=== PATIENT | male | born 1960 | race Hispanic/Latino ===

== ENCOUNTER 2017-06-06 06:31 | Day surgery (SDC) | payer MEDICARE ==
[2017-06-06 08:24] LABS: Hematocrit 39.8 % (35.5-45.6); Hemoglobin 13.5 gm/dl (11.8-15.2); Mean Corpuscular HGB Conc 34 % (32-34); Mean Corpuscular Hemoglobin 34 pg (28-32); Mean Corpuscular Volume 99 fl (84-94); Platelet Count 216 K/mm3 (140-440); Red Blood Count 4.03 M/mm3 (3.65-5.03); Red Cell Distribution Width 13.9 % (13.2-15.2)
[2017-06-06 08:36] LABS: INR 0.93 (0.87-1.13)
[2017-06-06 08:37] LABS: Partial Thromboplastin Time 29.7 Sec. (24.2-36.6)
[2017-06-06] MEDS ORDERED: ATIVAN ONE (08:38)
[2017-06-06] MEDS ORDERED: ATIVAN IV ONE (09:00)
[2017-06-06] MEDS ORDERED: VERSED IV ONE (09:30)
[2017-06-06 09:45] LABS: Anion Gap 20 mmol/L; BUN/Creatinine Ratio 18.57; Blood Urea Nitrogen 13 mg/dL (9-20); Calcium 9.1 mg/dL (8.4-10.2); Carbon Dioxide 22 mmol/L (22-30); Chloride 90.8 mmol/L (98-107); Glucose 99 mg/dL (75-100); Potassium 4.7 mmol/L (3.6-5.0); Sodium 128 mmol/L (137-145)
[2017-06-06] MEDS ORDERED: BENADRYL ONE (09:53)
[2017-06-06] MEDS ORDERED: SUBLIMAZE IV ONE (10:00)
[2017-06-06] MEDS ORDERED: BENADRYL IV ONE (10:30)
--- NOTE | 2017-06-06 10:32 | Operative Report ---
Operative Report Operative Report: Procedure: CT-guided biopsy/aspiration of an exophytic left renal mass. Date of Procedure: 06/06/2017 History/Indication: 57-year-old male with multiple comorbidities, with an incidentally discovered low-density exophytic left renal mass on CT. Physician: Gianfranco Gutiérrez MD Technique/Procedural Details: Informed consent was obtained. Monitored sedation was administered with the assistance of the nursing staff. The patient was placed in the prone position on the CT scanner. A marking grid was placed, and a machine tool electrician image was obtained. After the appropriate site was marked, the patient was prepped and draped in the usual sterile fashion. A timeout was performed. Local anesthetic, both superficial and deep, was administered. A 17-gauge trocar needle was advanced to the edge of a left-sided exophytic renal lesion under sequential CT guidance. Multiple 18-gauge core samples were acquired with a [employer] core biopsy device. Aspiration of lesion contents was then performed through the trocar needle. The needle was removed, and final imaging was obtained. The patient was then transported from the CT scanner in good condition. Discussion: CT demonstrates a 1.5-2 cm low-density exophytic left renal lesion. Only scant tissue was obtained despite multiple 18-gauge core attempts. Approximately 1-2 mL of thin yellow fluid was aspirated. This is likely a largely cystic lesion containing very little solid tissue. Pathology was present and deemed whatever solid tissue was acquired was sufficient for analysis. Post biopsy imaging demonstrated small foci of air related to the procedure around the lesion. There is no evidence of postprocedural hemorrhage/hematoma. Specimen: Renal lesion contents. EBL: <5 cc
--- NOTE | 2017-06-06 10:35 | Cat Scan Report ---
Please see the dictated operative note in [facility] for full procedural details.
[2017-06-06] MEDS ORDERED: NORCO 10/325 PO PRN (11:00)
[2017-06-06 12:36] VITALS: BP 136/84
== END 2017-06-06 12:42 | disposition left against medical advice (07) ==
LOC: EEVIPCON 06:31 → OPU 06:31 → EDSTATUS 08:30 → OPU 12:42
PROVIDERS: ATTEND Radiology Diagnostic Radiology
DX: N28.89 Other specified disorders of kidney and ureter (principal); I10 Essential (primary) hypertension; F31.9 Bipolar disorder, unspecified; F17.210 Nicotine dependence, cigarettes, uncomplicated; Z98.890 Other specified postprocedural states
CPT/HCPCS: 36415; 50200; 77012; 80048; 85027; 85610; 85730; 88173; 88305; 88333; J1200; J2060; J2250; J3010; 88334

== ENCOUNTER 2018-06-13 06:03 | Day surgery (SDC) | payer MEDICARE ==
[2018-06-13] MEDS ORDERED: NACL 0.9% 1000 ML 1,000 ML ONE (07:30)
[2018-06-13] MEDS ORDERED: WATER FOR IRRIG STERILE IR ONE (07:41)
[2018-06-13] MEDS ORDERED: XYLOCAINE MPF 2% ONE (08:00)
[2018-06-13] MEDS ORDERED: NACL 0.9% 1000 ML 1,000 ML IV SCH (08:00)
[2018-06-13] MEDS ORDERED: DIPRIVAN 10 MG/ML IV ONE ×2 (08:28)
--- NOTE | 2018-06-13 09:00 | Anesthesia Consultation ---
Anesthesia Consult and Med Hx Date of service: 06/13/18 - Airway Anesthetic Teeth Evaluation: Good ROM Head & Neck: Adequate Mental/Hyoid Distance: Adequate Mallampati Class: Class II Intubation Access Assessment: Probably Good - Pre-Operative Health Status ASA Pre-Surgery Classification: ASA3 Proposed Anesthetic Plan: MAC - Pulmonary Hx Smoking: Yes (10 CIGARETTES DAILY 1-2 PPD 36 YRS) COPD: Yes Hx Sleep Apnea: No - Cardiovascular System Hx Hypertension: Yes - Central Nervous System Hx Psychiatric Problems: Yes - Gastrointestinal Hx Gastroesophageal Reflux Disease: Yes - Endocrine Hx Renal Disease: Yes (LEFT KIDNEY BENIGN MASS X 2) Hx Cirrhosis: Yes - Other Systems Hx Cancer: No
--- NOTE | 2018-06-13 09:01 | Anesthesia Day of Surgery ---
Anesthesia Day of Surgery - Day of Surgery Patient Examined: Yes Patient H&P Reviewed: Yes Patient is NPO: Yes
--- NOTE | 2018-06-13 09:03 | History and Physical Report ---
HISTORY OF PRESENT ILLNESS: A 58-year-old white male with a history of neurogenic bladder who has a long history of also drinking alcohol as well as smoking. His last EGD was about a year ago. He had shown some presence of portal gastropathy at that time. He also subsequently had a CT scan, which showed presence of 2 renal cysts with no enhancing renal mass. The liver did show some evidence of mildly irregular contour suggestive maybe of early evidence of cirrhosis and possible fatty liver. Bile ducts were not dilated and the pancreas was unremarkable. The spleen was not enlarged. He also has lately been complaining of dysphagia and abdominal pain and associated diarrhea and will be tried on ____. He has been advised to have an EGD done with possible dilation. His last dilation was a year ago. Last CT scan done by me had also showed necrosis of the left femoral head for which he had to follow up with an orthopedic surgeon. SOCIAL HISTORY: Admits to smoking and alcohol use. No cardiac issues. He has had his flu shots. MEDICATIONS: Include Prilosec, Trileptal, Coreg, BuSpar, valsartan, Diovan, and oxycodone. PHYSICAL EXAMINATION: VITAL SIGNS: His blood pressure is 155/103, pulse is 75. Height is 5 feet 11 inches, weight is 197 pounds. Afebrile. HEENT: Showed no JVD. LUNGS: Clear to auscultation. CARDIOVASCULAR: Normal. ABDOMEN: Soft. Bowel sounds present. NEUROLOGIC: The patient was otherwise alert and oriented. ASSESSMENT AND PLAN: Abdominal pain, dysphagia, diarrhea, fatty liver, left renal mass, possible necrosis of the left humeral head for which he has had a hip surgery. Plan is to do an EGD with possible dilation at [facility] on 06/13/2018 and continue with his present treatment of for his diarrhea. JOB# [id number] LACHELLE/ARPAN
--- NOTE | 2018-06-13 09:06 | Procedure Note ---
Date of procedure: 06/13/18 Pre-op diagnosis: Dysphagia Post-op diagnosis: other (Esophageal Ulcer/Erosive Esophagitis/ Mild, Benign esophageal Stenosis (s/p esophageal dilation)/ Duodenal Ulcer/ Gastric Erosion and FGastritis) Anesthesia: MAC Estimated blood loss: minimal Pathology: list Specimen disposition: to lab Condition: stable Disposition: same day (Avoid aspirin and aspirin related products and anticoagulants for 4 days. Follow up in 1 to 2 weeks ([phone]).)
--- NOTE | 2018-06-13 09:14 | Operative Report ---
INDICATIONS: A 58-year-old white male who has a history of alcohol use over a prolonged period of time lately has been having problems with dysphagia. He had EGD and dilation done a year ago. Repeat EGD was done to make sure there was not any significant upper GI pathology present. He also complains of severe abdominal pain. DESCRIPTION OF PROCEDURE: EGD was done after getting informed consent with MAC anesthesia. The instrument was passed through the hypopharynx into the esophagus, which did not show any esophageal varices, but did show an esophageal ulcer in the distal esophagus. Biopsy was done from the distal esophagus as well as from the mid esophagus. Biopsy was done from the distal esophagus from over the area of the esophageal ulcer in the mid esophagus for eosinophilic esophagitis. The stomach showed gastritis and some portal gastropathy. There was no evidence of any esophageal varices present. Biopsy was done from the gastric antrum and angular incisure on the gastric body to rule out for H. pylori and atrophic gastritis. The pylorus was patent. The duodenum and the bulb showed a duodenal ulcer, clean base. Second portion appeared normal. At the end of the procedure, the patient was dilated with a 46-and a 48-[place] Alvarado dilator because of his symptoms of dysphagia and presence of mild benign esophageal stenosis. There was minimal bleeding from the biopsy sites. No complications associated with the procedure. IMPRESSION: EGD with biopsy and status post esophageal dilation for mild benign esophageal stenosis and esophageal ulcer in the distal esophagus with erosive esophagitis, rule out eosinophilic esophagitis, gastritis, and a clean based duodenal ulcer. The patient had patent pylorus. Again, there was minimal bleeding from the biopsy sites and no complications associated with the procedure. The patient will be treated with PPI. Asked to avoid aspirin and aspirin-related products for the next few days, asked to follow up in the office in 1-2 weeks' time and will be strongly advised to refrain from smoking and tobacco use. JOB# [id number] LACHELLE/ARPAN
--- NOTE | 2018-06-13 10:09 | Post Anesthesia Evaluation ---
- Post Anesthesia Evaluation Patient Participated: Yes Airway Patent: Yes Stable Respiratory Function: Yes Nausea/Vomiting: No Temp > 96.8F: Yes Pain Manageable: Yes Adequeate Hydration: Yes Anesthesia Complications: No
[2018-06-13 10:39] VITALS: BP 160/88
--- NOTE | 2018-06-13 10:49 | Operative Report ---
EGD WITH BIOPSY AND ESOPHAGEAL DILATION Procedure done 06/13/2018 at [facility]. DESCRIPTION OF PROCEDURE: The procedure was done with MAC anesthesia head of the GI lab, was in the room during the procedure. Procedure was done after getting informed consent with MAC anesthesia. Instrument was passed through hypopharynx into the esophagus, which showed some mild benign esophageal stenosis and distal esophageal ulcer with moderate distal erosive esophagitis. The stomach showed gastric erosion and gastritis. The pylorus was patent. The duodenum and the bulb showed clean based duodenal ulcer. Second portion appeared normal. Biopsy was done from the gastric body, the gastric antrum and the angular incisure for H. pylori. Additional biopsy was done from the distal esophagus where the esophageal ulcer was assessed for the severity of the erosive esophagitis and from the midesophagus to rule out for eosinophilic esophagitis. No esophageal varices were noted at the end of the procedure. The esophagus was dilated with a 46 and a 48-[place] Alvarado dilator. There were no complications associated with the procedure and there was minimal bleeding associated with the procedure. ASSESSMENT: Dysphagia, mild benign esophageal stenosis, status post esophageal dilation with 46 and 48-[place] Alvarado dilator, distal esophageal ulcer. Moderate erosive esophagitis, rule out eosinophilic esophagitis. No esophageal varices noted. Clean-based duodenal ulcer noted. Gastric erosion, gastritis, patent pylorus. Plan is to treat the patient with 40 mg p.o. once daily. The patient will be strongly advised to refrain from smoking and alcohol use to avoid aspirin and aspirin-related products for the next few days and follow up in the office in 1-2 weeks' time and again and was in the room and the whole time during the procedure. JOB# [id number] LACHELLE/ARPAN
== END 2018-06-13 06:04 | disposition home or self-care (01) ==
LOC: GIO 06:03
DX: K22.10 Ulcer of esophagus without bleeding (principal); K22.2 Esophageal obstruction; K26.9 Duodenal ulcer, unspecified as acute or chronic, without hemorrhage or perforation; K25.9 Gastric ulcer, unspecified as acute or chronic, without hemorrhage or perforation; K29.50 Unspecified chronic gastritis without bleeding; K21.0 Gastro-esophageal reflux disease with esophagitis; B37.9 Candidiasis, unspecified; I10 Essential (primary) hypertension; J44.9 Chronic obstructive pulmonary disease, unspecified; M19.90 Unspecified osteoarthritis, unspecified site; F17.210 Nicotine dependence, cigarettes, uncomplicated; Z96.642 Presence of left artificial hip joint; Z98.890 Other specified postprocedural states
CPT/HCPCS: 43239; 43499; 88305; 88342; J2704; J7030; 88312

== ENCOUNTER 2018-06-27 06:11 | Day surgery (SDC) | payer MEDICARE ==
[2018-06-27] MEDS ORDERED: WATER FOR IRRIG STERILE IR ONE (07:01)
[2018-06-27] MEDS ORDERED: WATER FOR IRRIG STERILE ONE (07:02)
[2018-06-27] MEDS ORDERED: DIPRIVAN 10 MG/ML IV ONE ×3 (07:45)
[2018-06-27] MEDS ORDERED: NACL 0.9% 1000 ML 1,000 ML IV SCH (08:00)
[2018-06-27] MEDS ORDERED: NACL 0.9% 100 ML ONE (08:16)
[2018-06-27] MEDS ORDERED: XYLOCAINE TOPICAL 2% 5ML ONE (09:01)
[2018-06-27] MEDS ORDERED: XYLOCAINE TOPICAL 2% 30ML TP ONE (09:05)
--- NOTE | 2018-06-27 09:16 | Procedure Note ---
Date of procedure: 06/27/18 Pre-op diagnosis: Hematochezia Post-op diagnosis: other (Hematochezia secondary Internal Hemorrhoids (s/p Banding x 4)/ Multiple,Small Recto-Sigmoid Polyps (possibly Hyperplastic)) Procedure: Colonoscopy with Biopsy andFlex Sigmoidoscopy with Banding x 4 Anesthesia: MAC Surgeon: KRISTY HENRIQUEZ Estimated blood loss: minimal Pathology: list Specimen disposition: to lab Condition: stable Disposition: same day (Avoid aspirin and aspirin related products for 4 days. follow up in 1 to 2 weeks ([phone]).)
--- NOTE | 2018-06-27 09:38 | Operative Report ---
PROCEDURE: Colonoscopy. INDICATIONS: This is a 58-year-old white male with underlying history of alcohol use, history of mild alcoholic liver disease, history of Aracelis esophagitis, duodenal ulcer and necrosis of the left femoral head for which he has had hip replacement done, recently had been having some lower GI bleeding. Colonoscopy was done to assess for the problem. DESCRIPTION OF PROCEDURE: Procedure was done after getting informed consent with MAC anesthesia. Initial rectal exam was unremarkable. Instrument was passed through the rectum onto the cecum, which was identified with ileocecal valve and the appendiceal orifice. Visualization was fair. The mucosa was washed with copious amounts of water. No significant pathology was noted in the cecum, ascending colon, transverse colon, and descending colon. In the rectosigmoid area, there were several small polyps noted, possibly hyperplastic in type. It was removed by cold biopsy and the rectum showed moderate internal hemorrhoids on the retroverted view, which may have been the cause of the patient's bleeding. There was minimal bleeding from the biopsy sites. No complications associated with the procedure. ASSESSMENT: 1. Lower gastrointestinal bleeding secondary to moderate internal hemorrhoids. 2. Several rectosigmoid polyps, possibly hyperplastic in type and there was minimal bleeding from the biopsy sites. No complications associated with the procedure. Plan is to do a flex sig with banding for treatment of the moderate internal hemorrhoids, which is causing the hematochezia. There were no complications associated with the procedure. The patient will be asked to avoid aspirin and aspirin-related products for the next few days and follow up in the office in 1-2 weeks' time. Nurse, Evelyn Fine was in the room throughout the entirety of this procedure. JOB# [id number] LACHELLE/ARPAN
[2018-06-27 09:41] VITALS: BP 154/74
--- NOTE | 2018-06-27 10:00 | History and Physical Report ---
HISTORY OF PRESENT ILLNESS: This is a 58-year-old white male with a history of neurogenic bladder, who has a long history of drinking as well as smoking recently, had an EGD, which showed some dysphagia. EGD also showed presence of Aracelis esophagitis, mild benign esophageal stenosis requiring dilation as well as the presence of a duodenal ulcer. Biopsy was negative for H. pylori, but was positive for Aracelis esophagitis. He has lately been complaining of lower GI bleeding and has been advised to have a colonoscopy done for further assessment, may also require a flex sig with banding if needed. SOCIAL HISTORY: Admits to smoking as well as drinking. He has had his flu shots. No cardiac issues. ALLERGIES: No known allergies. PAST SURGICAL HISTORY: He also has recently had a hip replacement involving his left hip. MEDICATIONS: He is on multiple medications including Prilosec, Coreg, BuSpar, valsartan, Diovan, oxycodone, Diflucan, omeprazole PHYSICAL EXAMINATION: VITAL SIGNS: He is afebrile. Blood pressure 177/104, pulse is 62, height is 5 feet 11 inches, weight is 210 pounds. HEENT: Shows no JVD. LUNGS: Clear to auscultation with some reduced breath sounds. CARDIOVASCULAR: Normal. ABDOMEN: Soft. Bowel sounds present. He still has some epigastric tenderness to palpation. EXTREMITIES: No pedal edema and has had a hip replacement for necrosis of the left femoral head. NEUROLOGIC: He is alert and oriented. ASSESSMENT: Lower gastrointestinal bleeding, Aracelis esophagitis, history of duodenal ulcer, fatty liver, history of necrosis of the left humeral head requiring left hip replacement. PLAN: Do a colonoscopy at [facility] on 06/27/2018. He has also been advised to avoid smoking and needs to have a followup following the colonoscopy. JOB# [id number] LACHELLE/ARPAN VIGIL
--- NOTE | 2018-06-27 10:10 | Operative Report ---
PROCEDURE: Flexible sigmoidoscopy with banding. INDICATIONS: This is a 58-year-old male who had been having some lower GI bleeding. Colonoscopy showed moderate internal hemorrhoid, which may have been the cause of the bleeding. There were no external hemorrhoids noted. Flex sig with banding was done for treatment of this condition. DESCRIPTION OF PROCEDURE: Procedure was done after getting informed consent with MAC anesthesia. The EGD scope with the banding apparatus was mounted. It was then introduced through the rectum and retroflexed. Four of the largest hemorrhoids were then suctioned into the suction channel and a band was applied to each of them except the largest one, which had 2 bands applied to it. There was no bleeding associated with the procedure. No complications associated with the procedure. After the banding, the banded areas had applications of lidocaine gel applied to it. ASSESSMENT: Hematochezia secondary to moderate internal hemorrhoids, status post banding of 4 internal hemorrhoids with application of 5 bands. No complications associated with the procedure. No active bleeding associated with the procedure. The patient will be given a prescription for lidocaine gel and asked to use Sitz baths and follow up in the office in 1-2 weeks' time and nurse, Evelyn Fine was in the room throughout the entirety of this procedure. JOB# [id number] LACHELLE/ARPAN
== END 2018-06-27 08:40 | disposition home or self-care (01) ==
LOC: GIO 06:11
DX: K62.1 Rectal polyp (principal); K63.5 Polyp of colon; K64.8 Other hemorrhoids; B37.81 Candidal esophagitis; F17.210 Nicotine dependence, cigarettes, uncomplicated; I10 Essential (primary) hypertension; J44.9 Chronic obstructive pulmonary disease, unspecified; F31.9 Bipolar disorder, unspecified; K21.9 Gastro-esophageal reflux disease without esophagitis; M19.90 Unspecified osteoarthritis, unspecified site; Z79.899 Other long term (current) drug therapy; Z96.642 Presence of left artificial hip joint; Z72.89 Other problems related to lifestyle; Z98.890 Other specified postprocedural states
CPT/HCPCS: 45380; 46221; 88305; J2704; J7030

== ENCOUNTER 2019-02-04 07:23 | Day surgery (SDC) | payer MEDICARE ==
[2019-02-04] MEDS ORDERED: DIPRIVAN 10 MG/ML IV ONE ×3 (07:37→07:38)
[2019-02-04] MEDS ORDERED: XYLOCAINE 2% INFILTRATI ONE (07:38)
[2019-02-04] MEDS ORDERED: PROAIR IH ONE (07:51)
--- NOTE | 2019-02-04 07:57 | Anesthesia Day of Surgery ---
Anesthesia Day of Surgery - Day of Surgery Patient Examined: Yes Patient H&P Reviewed: Yes Patient is NPO: Yes Beta Blockers: Yes Cardiac Clearance: No (n/a) Pulmonary Clearance: No (n/a)
--- NOTE | 2019-02-04 07:57 | Anesthesia Consultation ---
Anesthesia Consult and Med Hx Date of service: 02/04/19 - Airway Anesthetic Teeth Evaluation: Poor ROM Head & Neck: Adequate Mental/Hyoid Distance: Adequate Mallampati Class: Class II Intubation Access Assessment: Probably Good - Pulmonary Exam CTA: No (mild end-expiratory wheezing, rhonchi cleared with cough) - Cardiac Exam Cardiac Exam: RRR - Pre-Operative Health Status ASA Pre-Surgery Classification: ASA3 Proposed Anesthetic Plan: MAC - Pulmonary Hx Smoking: Yes (1 ppd for >25 years) COPD: Yes (albuterol 3 puffs preop) Home Oxygen Therapy: No Hx Sleep Apnea: No - Cardiovascular System Hx Hypertension: Yes Hx Coronary Artery Disease: Yes (angioplasty 6 years ago ) Hx Heart Attack/AMI: No Hx Angina: No Hx Cardia Arrhythmia: No Hx Peripheral Vascular Disease: No - Central Nervous System Hx Neuromuscular Disorder: No Hx Psychiatric Problems: Yes - Gastrointestinal Hx Gastroesophageal Reflux Disease: Yes - Endocrine Hx Renal Disease: Yes (LEFT KIDNEY BENIGN MASS X 2) Hx Cirrhosis: Yes Hx Liver Disease: Yes Hx Insulin Dependent Diabetes: No Hx Thyroid Disease: No - Other Systems Hx Alcohol Use: Yes Hx Cancer: No Hx Obesity: Yes - Additional Comments Anesthesia Medical History Comments: No GAC, No FHAC
[2019-02-04] MEDS ORDERED: NACL 0.9% 1000 ML 1,000 ML IV SCH (08:00)
--- NOTE | 2019-02-04 08:54 | History and Physical Report ---
HISTORY OF PRESENT ILLNESS: A 59-year-old white male who has underlying history of hypertension. He has had a neurogenic bladder, for which he has had a stimulator placed. Recently about last year, he was having problems with hemorrhoids, subsequently underwent hemorrhoidectomy. He states that he has lost some control of his sphincters following that surgery. Lately, he has been having some diarrhea as well as hematochezia and was told by his colorectal surgeon that he may have ulcerative colitis. He is here for a colonoscopy to assess for possible ulcerative colitis. States that no other family member has history of colitis that he is aware of. He has had sacroiliitis and has had surgery for fusion of his sacroiliac joint. Also had necrosis of the head of the femur on the left side for which he has had surgery in the past. ALLERGIES: No known allergies. SOCIAL HISTORY: Admits to smoking and alcohol use. PHYSICAL EXAMINATION: VITAL SIGNS: Otherwise stable. HEENT: Shows no JVD. LUNGS: Show some reduced breath sounds, but otherwise clear to auscultation. CARDIOVASCULAR: Normal. ABDOMEN: Shows some midabdominal tenderness. Bowel sounds present. EXTREMITIES: No pedal edema. NEUROLOGIC: He is alert and oriented. ASSESSMENT AND PLAN: Diarrhea, hematochezia, possible ulcerative colitis, history of status post hemorrhoidectomy, sacroiliitis, for which he has had sacroiliac joint fusion and necrosis of the head of the left femur, for which he has also had a hip replacement done. Plan is to do colonoscopy at [facility] on 02/04/2019. JOB# [id number] LACHELLE/ARPAN
[2019-02-04] MEDS ORDERED: WATER FOR IRRIG STERILE IR ONE (09:07)
--- NOTE | 2019-02-04 09:07 | Procedure Note ---
Date of procedure: 02/04/19 Pre-op diagnosis: Diarrhea/ Hematochezia Post-op diagnosis: other (R/O Microscopic Colitis/ R/O Ileitis/ Multiple, Colon Polyps (Cecum,Descending Colon and Recto-Sigmoid)/ S/P Hemorrhoidectomy/ No Endoscopic evidence of Colitis or Ileitis noted) Procedure: Colonoscopy with Snare Polypectomy and Cold Biopsy Anesthesia: [facility] Surgeon: KRISTY HENRIQUEZ Estimated blood loss: minimal Pathology: list Specimen disposition: to lab Condition: stable Disposition: same day (Avoid aspirin and NSAID for 5 days. Use Imodium AD (OTC) as needed for diarrhea and follow up in 1 to 2 weeks ([phone]))
--- NOTE | 2019-02-04 09:33 | Operative Report ---
PROCEDURE: Colonoscopy with snare polypectomy and biopsy. INDICATIONS FOR PROCEDURE: This is a 59-year-old white male who has underlying history of hypertension who has a neurogenic bladder for which he had a neurotransmitter placed, recently underwent hemorrhoidectomy when was having diarrhea and hematochezia and it was suggested by his colorectal surgeon that he may have ulcerative colitis. Colonoscopy was done to assess for the diarrhea and the hematochezia. DESCRIPTION OF PROCEDURE: Procedure was done after getting informed consent with MAC anesthesia. Initial rectal examination was unremarkable other than the fact that he had hemorrhoidectomy and his rectal opening was a little tight. Instrument was passed through the rectum and onto the cecum, which was identified with ileocecal valve and the appendiceal orifice. Visualization was fair. Terminal ileum was intubated showed normal mucosa. There was no endoscopic evidence of ileitis. Biopsy was done to rule out for possible ileitis. In the cecum, there was a sessile 10 mm polyp noted that was removed by snare polypectomy with application of heat and retrieved. Random biopsies were done throughout the proximal colon, transverse colon, descending colon and sigmoid as well as the rectum to rule out for possible microscopic colitis. There was no evidence of any diverticular disease in the rectum as well as in the rectosigmoid area. There were several small flat polyps noted, possibly hyperplastic that were removed by cold biopsy. There was minimal bleeding from the biopsy sites. There was no diverticular disease noted and no evidence of any hematochezia that was noted. ASSESSMENT: Diarrhea, hematochezia, no obvious reason for the hematochezia. The patient is status post hemorrhoidectomy. Rule out microscopic colitis, rule out ileitis. Multiple small polyps noted in the rectosigmoid area, in the descending colon, possibly hyperplastic, removed by cold biopsy, a larger sessile polyp and flat polyp that were noted in the cecum that was removed by snare excision and retrieved. Again, there was minimal bleeding from the biopsy sites. No complications associated with the procedure. PLAN: Plan is to wait for the biopsy results and have the patient follow up in the office in 1-2 weeks' time. The patient will be advised to refrain from any aspirin or aspirin-related products and strongly advised to avoid smoking and alcohol products. RN, Sandi Murphy, was in the room throughout the entirety of the procedure. JOB# [id number] LACHELLE/ARPAN
[2019-02-04 09:37] VITALS: BP 115/78
[2019-02-04 10:05] LABS: INR 0.91 (0.87-1.13)
[2019-02-04 10:08] LABS: Alanine Aminotransferase 21 units/L (7-56); Albumin 4.1 g/dL (3.9-5)
[2019-02-04 10:12] LABS: Bilirubin,Direct < 0.2 mg/dL (0-0.2)
== END 2019-02-04 07:24 | disposition home or self-care (01) ==
LOC: GIO 07:23
DX: K63.5 Polyp of colon (principal); K57.30 Diverticulosis of large intestine without perforation or abscess without bleeding; I10 Essential (primary) hypertension; I25.10 Atherosclerotic heart disease of native coronary artery without angina pectoris; J44.9 Chronic obstructive pulmonary disease, unspecified; F17.210 Nicotine dependence, cigarettes, uncomplicated; E78.00 Pure hypercholesterolemia, unspecified; K21.9 Gastro-esophageal reflux disease without esophagitis; M19.90 Unspecified osteoarthritis, unspecified site; F33.9 Major depressive disorder, recurrent, unspecified; F41.9 Anxiety disorder, unspecified; E66.9 Obesity, unspecified; Z68.26 Body mass index [BMI] 26.0-26.9, adult; Z79.899 Other long term (current) drug therapy; Z96.642 Presence of left artificial hip joint; Z98.890 Other specified postprocedural states
CPT/HCPCS: 36415; 45380; 45385; 80076; 85610; 88305; J2704; J7030

== ENCOUNTER 2020-06-08 12:08 | Day surgery (SDC) | payer MEDICARE ==
[~2020-06-08 12:08] MED LIST: LACTATED RINGERS 1,000 ML IV SCH; MIDAZOLAM 2 MG/2 ML INJ IV NR; ceFAZolin/Water 2 GM/20 ML 2 GM/20 ML SYRINGE IV NR
[2020-06-08] MEDS ORDERED: fentaNYL 100 MCG/2 ML INJ IV ONE (13:12)
--- NOTE | 2020-06-08 13:15 | Anesthesia Day of Surgery ---
Anesthesia Day of Surgery - Day of Surgery Patient Examined: Yes Patient H&P Reviewed: Yes Patient is NPO: Yes Beta Blockers: Yes
--- NOTE | 2020-06-08 13:15 | Anesthesia Consultation ---
Anesthesia Consult and Med Hx Date of service: 06/08/20 - Airway Anesthetic Teeth Evaluation: Good, Partials ROM Head & Neck: Adequate Mental/Hyoid Distance: Inadequate Mallampati Class: Class III Intubation Access Assessment: Possibly Difficult - Pulmonary Exam CTA: Yes - Cardiac Exam Cardiac Exam: RRR - Pre-Operative Health Status ASA Pre-Surgery Classification: ASA3 Proposed Anesthetic Plan: MAC - Pulmonary Hx Smoking: Yes (1PPD) Hx Respiratory Symptoms: No COPD: Yes (used albuterol this morning, no symptoms) Home Oxygen Therapy: No - Cardiovascular System Hx Hypertension: Yes (took antihypertensives this morning) Hx Coronary Artery Disease: Yes (normal EF 09/2019 per cardiology note) Hx Heart Attack/AMI: No Hx Percutaneous Transluminal Coronary Angioplasty (PTCA): Yes (7 yrs ago) Hx Cardia Arrhythmia: No - Central Nervous System Hx Neuromuscular Disorder: No (neurogenic bladder) CVA: No Hx Psychiatric Problems: Yes (bipolar disorder) - Endocrine Hx Renal Disease: No Hx Liver Disease: No Hx Insulin Dependent Diabetes: No Hx Non-Insulin Dependent Diabetes: No Hx Thyroid Disease: No - Other Systems Hx Obesity: No - Additional Comments Anesthesia Medical History Comments: No hx anesthetic complications.
[2020-06-08] MEDS ORDERED: HYDROmorphone 1 MG/1 ML INJ IV PRN (13:16)
[2020-06-08] MEDS ORDERED: dexAMETHasone 20 MG/5 ML VIAL ONE (15:00)
[2020-06-08] MEDS ORDERED: HYDROmorphone 1 MG/1 ML INJ ONE ×2 (15:01→15:54)
[2020-06-08] MEDS ORDERED: LIDOCAINE MPF (2%) 20 MG/1 ML VIAL 5 ML ONE (15:01)
[2020-06-08] MEDS ORDERED: ONDANSETRON 4 MG/2 ML INJ ONE (15:01)
[2020-06-08] MEDS ORDERED: propofoL 200 MG/20 ML VIAL IV ONE (15:02)
[2020-06-08] MEDS ORDERED: KETAMINE/STERILE WATER 50 MG/ML SYRINGE ONE (15:02)
[2020-06-08] MEDS ORDERED: SUCCINYLCHOLINE CHLORIDE 200 MG/10 ML INJ MDV ONE (15:06)
[2020-06-08] MEDS ORDERED: ePHEDrine SULFATE 50 MG/1 ML INJ ONE (16:03)
[2020-06-08] MEDS ORDERED: LIDOCAINE (2%) 20 MG/1 ML VIAL 20 ML MDV INFILTRATI ONE (16:30)
--- NOTE | 2020-06-08 16:36 | Short Stay Summary ---
Short Stay Documentation Date of service: 06/08/20 - History H&P: obtained from office - Allergies and Medications Current Medications: Allergies No Known Allergies Allergy (Verified 06/06/17 07:27) Home Medications Medication Instructions Recorded Confirmed Last Taken Type carvediloL [Coreg] 6.25 mg PO BID 06/06/17 06/08/20 06/08/20 08:00 History oxyCODONE /ACETAMINOPHEN [Percocet 5 mg PO PRN PRN 06/06/17 06/06/20 02/03/19 History 5/325] ALBUTEROL Inhaler(NF) 1 puff INHALATION PRN PRN 02/04/19 06/08/20 06/08/20 09:00 History Anoro Ellipta 62.5-25 Mcg INH 62.5 mcg INHALATION PRN 06/03/20 06/08/20 06/03/20 08:00 History Aspirin 81 mg AL DAILY 06/03/20 06/03/20 05/18/20 08:00 History OXcarbazepine 600 mg PO BID 06/03/20 06/08/20 06/07/20 20:00 History Zoloft 50 mg PO DAILY 06/03/20 06/08/20 06/07/20 20:00 History Telmisartan [Micardis] 80 mg PO DAILY 06/06/20 06/08/20 06/08/20 08:00 History Active Medications Hydromorphone HCl (Dilaudid) 0.5 mg IV Q10MIN PRN PRN Reason: Pain , Severe (7-10) Stop: 06/08/20 23:59 Cefazolin Sodium (Ancef/Sterile Water 2 Gm/20 Ml) 2 gm in 20 mls @ 80 mls/hr IV PREOP NR; Protocol Stop: 06/08/20 23:59 Lactated Ringer's (Lactated Ringers) 1,000 mls @ 100 mls/hr IV DIRECT RYLEE Stop: 06/08/20 23:59 Last Admin: 06/08/20 12:50 Dose: 100 mls/hr Documented by: Midazolam HCl (Versed) 2 mg IV PREOP NR Stop: 06/08/20 23:59 Last Admin: 06/08/20 13:22 Dose: 2 mg Documented by: - Brief post op/procedure progress note Date of procedure: 06/08/20 Pre-op diagnosis: malfx interstim Post-op diagnosis: same Procedure: replace ipg (left) Anesthesia: GETA Surgeon: FIONA LARSEN Pathology: list (medtronic ipg) Specimen disposition: to lab Condition: stable - Hospital course Hospital course: macrobid, ultram, norco - Disposition Condition at discharge: Stable Disposition: DC-01 TO HOME OR SELFCARE Short Stay Discharge Plan Follow up with: PRIMARY CARE, [Primary Care Provider] - 7 Days
[2020-06-08] MEDS ORDERED: SODIUM CHLORIDE 0.9% IRR 1,500 ML BOTTLE IR ONE (16:52)
[2020-06-08 17:24] VITALS: BP 144/85
--- NOTE | 2020-06-08 17:57 | Operative Report ---
PREOPERATIVE DIAGNOSIS: Malfunctioning InterStim. POSTOPERATIVE DIAGNOSIS: Malfunctioning InterStim. PROCEDURE: Replace InterStim battery implant (implantable pulse generator)- left. SURGEON: Stefan Wilson M.D. ANESTHESIA: General. ESTIMATED BLOOD LOSS: Minimal. FLUIDS: Crystalloid. COMPLICATIONS: No complications. INDICATIONS: This patient is a 60-year-old gentleman known to our service with long history of urge urinary incontinence due to back injury. He has had InterStim placed for several years, and had this replaced. He has also had a [employer] pain stimulator on the right. His orthopedic surgeon is Dr. Medhat Torre. Today, he presents for surgical intervention. DESCRIPTION OF PROCEDURE: The patient was taken to the operative suite, placed in a supine position. After adequate general anesthesia, he was then rolled into a prone position, prepped and draped in a sterile fashion as the buttocks were taped laterally to expose the anus. Lower back was prepped and draped in a sterile fashion. C-arm fluoroscopy was used to identify his back. He has hardware in the spine, a pain stimulator and InterStim. Looking at the wiring, there was a question regarding the configuration of the wiring. To look at the batteries, I made a small incision on the right side, identified it was a [employer] battery and therefore closed that incision and made an incision over the left-sided [employer] battery. Sharp dissection was taken down to the battery. It was opened. Anaerobic and aerobic cultures were taken. No signs of infection. The battery was removed. The quadripolar lead was tested, excellent response at 0 and 1 position with the energy of 2. The 2 and 3 leads had minimal response. Based on these findings, I replaced the implantable pulse generator with a new one. Interrogation revealed adequate response. The subcutaneous tissue was closed with 2-0 Vicryl in a running fashion. Skin was closed with 3-0 Vicryl in interrupted fashion. Fluffs and OpSite was placed. The patient tolerated the procedure well, was extubated and taken to recovery room in stable condition. He will go home on Cipro, Ultram and [place]. JOB# [id number] ANGUS/ARPAN VIGIL
--- NOTE | 2020-06-10 09:38 | XRay Report ---
INTRAOPERATIVE FLUOROSCOPY: PELVIS INDICATION / CLINICAL INFORMATION: FLACCID NEUROPATHIC BLADDER. TECHNIQUE: Intraoperative spot images were obtained during the procedure. FINDINGS: Fluoroscopy was provided during battery replacement for neural stimulator. Fluoroscopy Time: 0.1 minutes. Fluoroscopy Images: 2. Signer Name: Iwona Hernadez MD Signed: 06/08/2020 6:02 PM Workstation Name: [id number]
== END 2020-06-08 17:30 | disposition home or self-care (01) ==
LOC: OR 12:08
PROVIDERS: ATTEND Urology
DX: T83.190A Other mechanical complication of urinary electronic stimulator device, initial encounter (principal); Z11.59 Encounter for screening for other viral diseases; F17.210 Nicotine dependence, cigarettes, uncomplicated; R33.9 Retention of urine, unspecified; I25.10 Atherosclerotic heart disease of native coronary artery without angina pectoris; E78.00 Pure hypercholesterolemia, unspecified; I10 Essential (primary) hypertension; J44.9 Chronic obstructive pulmonary disease, unspecified; K21.9 Gastro-esophageal reflux disease without esophagitis; M19.90 Unspecified osteoarthritis, unspecified site; F31.9 Bipolar disorder, unspecified; N31.2 Flaccid neuropathic bladder, not elsewhere classified; F41.9 Anxiety disorder, unspecified; M54.5 Low back pain; Z79.82 Long term (current) use of aspirin; Z79.899 Other long term (current) drug therapy; Z96.642 Presence of left artificial hip joint; Z72.89 Other problems related to lifestyle; Z98.890 Other specified postprocedural states; Y83.8 Other surgical procedures as the cause of abnormal reaction of the patient, or of later complication, without mention of misadventure at the time of the procedure; Y82.8 Other medical devices associated with adverse incidents
CPT/HCPCS: 64590; 72170; 87075; 87116; 88300; C1767; C1787; J0330; J0690; J1100; J1170; J2250; J2405; J2704; J3010; J7120; U0003; 88302

== ENCOUNTER 2021-01-28 13:48 | Emergency (ER) | payer MEDICARE ==
[2021-01-28] MEDS ORDERED: HYDROmorphone 1 MG/1 ML INJ IV ONE (15:01)
[2021-01-28] MEDS ORDERED: ONDANSETRON 4 MG/2 ML INJ IV ONE (15:02)
[2021-01-28] MEDS ORDERED: LIDOCAINE VISCOUS 2% 15 ML ORAL LIQD MM NR (15:30)
[2021-01-28] MEDS ORDERED: MIDAZOLAM 5 MG/5 ML INJ MDV IV NR (16:00)
--- NOTE | 2021-01-28 16:13 | Emergency Department Report ---
ED Male HPI - General Chief complaint: Abdominal Pain Stated complaint: UNIRARY RETENTION/ABD PAIN Time Seen by Provider: 01/28/21 14:40 Source: EMS Mode of arrival: Stretcher Limitations: No Limitations - History of Present Illness Initial comments: 61-year-old male with a past medical history of copd without home oxygen use, hypertension, spinal injury, and neurogenic bladder presents to the hospital with complaints of inability to urinate since 8 AM. Patient had a spinal cord injury greater than 20 years ago and has both a spinal stimulator and bladder stimulator implanted. Patient was experiencing severe pain with bladder stimulator use therefore he was seen by the urologist on the and an attempt was made to place a Ayala catheter. The provider was unable to pass Ayala catheter and patient was scheduled for ? suprapubic catheter insertion outpatient procedure on Saturday the . Patient states that his bladder stimulator battery/controller is completely and nonfunctional. For this reason he is unable to empty his bladder since 8am. Patient has attempted to self cath himself multiple times at home however, he ws unsuccessful due to pain. Patient called the contact number for the bladder stimulator and reached out to his urologist Dr. Wilson. Dr Montanez was business functional analyst and directed patient to come to the ER. Patient presents with 10/10 suprapubic pain, complaining of inability to urinate, and requesting Versed or propofol prior to Ayala catheter insertion. Patient has also placed repeated calls to Dr. Montanez office requesting emergent treatment. When I entered the room patient has apparently cathed himself with urine output in the trash can. It appears to be approximately 1 L or less of urine in the base of the trash can. Patient reports improvement of suprapubic pain by pain is still present. Patient expresses that he will still need a Ayala due to difficulty cathing himself and the fact that his stimulator is not working. When I entered the room was speaking to Dr Montanez on the phone. I continue to interview and examine patient and called Dr Montanez after evaluation - Related Data Home Medications Medication Instructions Recorded Confirmed Last Taken carvediloL [Coreg] 6.25 mg PO BID 06/06/17 01/27/21 06/08/20 08:00 oxyCODONE /ACETAMINOPHEN [Percocet 5 mg PO PRN PRN 06/06/17 01/27/21 02/03/19 5/325] ALBUTEROL Inhaler(NF) 1 puff INHALATION PRN PRN 02/04/19 01/27/21 06/08/20 09:00 Anoro Ellipta 62.5-25 Mcg INH 62.5 mcg INHALATION PRN 06/03/20 01/27/21 06/03/20 08:00 Aspirin 81 mg WI DAILY 06/03/20 01/27/21 05/18/20 08:00 OXcarbazepine 600 mg PO BID 06/03/20 01/27/21 06/07/20 20:00 Telmisartan [Micardis] 80 mg PO DAILY 06/06/20 01/27/21 06/08/20 08:00 Allergies Allergy/AdvReac Type Severity Reaction Status Date / Time No Known Allergies Allergy Verified 06/06/17 07:27 ED Review of Systems ROS: Stated complaint: UNIRARY RETENTION/ABD PAIN Other details as noted in HPI Comment: All other systems reviewed and negative ED Past Medical Hx - Past Medical History Previous Medical History?: Yes Hx Hypertension: Yes Hx Heart Attack/AMI: No Hx Diabetes: No Hx GERD: No Hx Liver Disease: No Hx Renal Disease: No Hx Sickle Cell Disease: No Hx Arthritis: Yes Hx Asthma: No Hx COPD: Yes Hx Tuberculosis: No Hx HIV: No - Social History Smoking Status: Unknown if ever smoked - Medications Home Medications: Home Medications Medication Instructions Recorded Confirmed Last Taken Type carvediloL [Coreg] 6.25 mg PO BID 06/06/17 01/27/21 06/08/20 08:00 History oxyCODONE /ACETAMINOPHEN [Percocet 5 mg PO PRN PRN 06/06/17 01/27/21 02/03/19 History 5/325] ALBUTEROL Inhaler(NF) 1 puff INHALATION PRN PRN 02/04/19 01/27/21 06/08/20 09:00 History Anoro Ellipta 62.5-25 Mcg INH 62.5 mcg INHALATION PRN 06/03/20 01/27/21 06/03/20 08:00 History Aspirin 81 mg [place] DAILY 06/03/20 01/27/21 05/18/20 08:00 History OXcarbazepine 600 mg PO BID 07/01/27/21 06/07/20 20:00 History Telmisartan [Micardis] 80 mg PO DAILY 06/06/20 01/27/21 06/08/20 08:00 History ED Physical Exam - General Limitations: No Limitations - Other Other exam information: General: No acute distress Head: Atraumatic Eyes: normal appearance ENT: Moist mucous membranes Neck: Normal appearance, no midline tenderness Chest: Clear to auscultation bilaterally CV: Regular rate and rhythm Abdomen: Soft, normal bowel sounds, suprapubic tenderness, nondistended, no rebound or guarding Back: Normal inspection Extremity: Normal inspection, full range of motion Neuro: Alert O x 3, no facial asymmetry, speech clear, no gross motor sensory deficit Psych: Appropriate behavior Skin: No rash ED Course Vital Signs 01/28/21 01/28/21 01/28/21 14:16 14:29 16:18 Temperature 98.3 F Temperature [ Pre-Procedure] Pulse Rate 74 74 Pulse Rate [ Intra-Procedure ] Pulse Rate [ Post-Procedure] Pulse Rate [Pre -Procedure] Respiratory 13 19 Rate Respiratory Rate [Intra- Procedure] Respiratory Rate [Post- Procedure] Respiratory Rate [Pre- Procedure] Blood Pressure [Intra- Procedure] Blood Pressure 134/78 115/53 [Left] Blood Pressure [Post-Procedure ] Blood Pressure [Pre-Procedure] O2 Sat by Pulse 94 94 Oximetry O2 Sat by Pulse Oximetry [ Intra-Procedure ] O2 Sat by Pulse Oximetry [Post -Procedure] O2 Sat by Pulse Oximetry [Pre- Procedure] 01/28/21 01/28/21 01/28/21 16:21 16:26 16:30 Temperature 98.1 F Temperature [ Pre-Procedure] Pulse Rate 71 89 116 H Pulse Rate [ Intra-Procedure ] Pulse Rate [ Post-Procedure] Pulse Rate [Pre -Procedure] Respiratory 15 15 20 Rate Respiratory Rate [Intra- Procedure] Respiratory Rate [Post- Procedure] Respiratory Rate [Pre- Procedure] Blood Pressure [Intra- Procedure] Blood Pressure 147/72 129/57 [Left] Blood Pressure [Post-Procedure ] Blood Pressure [Pre-Procedure] O2 Sat by Pulse 93 91 Oximetry O2 Sat by Pulse Oximetry [ Intra-Procedure ] O2 Sat by Pulse Oximetry [Post -Procedure] O2 Sat by Pulse Oximetry [Pre- Procedure] 01/28/21 01/28/21 01/28/21 16:31 16:46 17:08 Temperature Temperature [ 98.0 F Pre-Procedure] Pulse Rate 87 Pulse Rate [ 89 Intra-Procedure ] Pulse Rate [ 87 Post-Procedure] Pulse Rate [Pre 71 -Procedure] Respiratory 16 Rate Respiratory 15 Rate [Intra- Procedure] Respiratory 16 Rate [Post- Procedure] Respiratory 15 Rate [Pre- Procedure] Blood Pressure 129/57 [Intra- Procedure] Blood Pressure 139/64 [Left] Blood Pressure 139/64 [Post-Procedure ] Blood Pressure 147/72 [Pre-Procedure] O2 Sat by Pulse 92 94 Oximetry O2 Sat by Pulse 91 Oximetry [ Intra-Procedure ] O2 Sat by Pulse 92 Oximetry [Post -Procedure] O2 Sat by Pulse 93 Oximetry [Pre- Procedure] - Reevaluation(s) Reevaluation #1: 01/28/21 15:44 After self cath patient bladder residual was 332 mL 01/28/21 18:23 Patient is currently alert. Monitoring complete without signs of significant desaturation/hypoxia or CO2 retention as per capnometer - Consultations Consultation #1: 01/28/21 15: 25 Case d/w urology Dr Marcelino Believes that patient should be able to continue the cath itself and will likely not need a Ayala. CT suggests possible admission and for pain control if needed. Explained that patient's bladder stimulator is no longer working he cannot urinate spontaneously and that he has significant discomfort and pain with self cathing. Informed him that I will perform bladder scan and attempt to put Ayaal catheter in the ED so he can be discharged to follow-up with his outpatient surgery as scheduled on Saturday unless there is another abnormality identified blood work/ed eval - Procedure Description Procedures done: I was at the bedside to assist with Ayala catheter placement with conscious sedation. Patient received Dilaudid for pain followed by Versed for sedation. Penis was injected with viscous lidocaine for additional pain control. A 18 Hungarian coud catheter was placed in the urethra without di fficulty with the with return of clear urine. Approximately 400 mL urine output after catheter placement. - Moderate Sedation Indications: other ASA Class: III Mallampati Airway Score: 3 Time of Last PO Intake: 20:00 (last night) Preparation: tamale maker applied, pulse oximeter, capnometry used, supplemental O2 applied, suction/airway equipment at bedside, IV secured Midazolam Dose: 5 Complications: hypoxia Interventions: oxygen applied Patient Tolerated Procedure: well Additional Comments: procedure start time 16:18 cath placed by 16:25 pt continuously monitored due to sedation: At 18:15 patient is alert with normal vital signs. Patient monitored throughout procedure until this time and has saturation in the 90s on 2 L nasal cannula without signs of CO2 retention. Patient is alert and oriented and is stable for discharge. He does have a ride home ED Medical Decision Making - Lab Data Result diagrams: 01/28/21 15:57 01/28/21 15:57 Lab Results 01/28/21 01/28/21 01/28/21 Range/Units 15:57 15:57 16:20 WBC 7.6 (4.5-11.0) K/mm3 RBC 4.30 (3.65-5.03) M/mm3 Hgb 14.8 (11.8-15.2) gm/dl Hct 43.0 (35.5-45.6) % MCV 100 H (84-94) fl MCH 34 H (28-32) pg MCHC 34 (32-34) % RDW 13.2 (13.2-15.2) % Plt Count 172 (140-440) K/mm3 Lymph % (Auto) 35.6 H (13.4-35.0) % [place] % (Auto) 7.6 H (0.0-7.3) % Eos % (Auto) 3.4 (0.0-4.3) % Baso % (Auto) 0.4 (0.0-1.8) % Lymph # (Auto) 2.7 (1.2-5.4) K/mm3 [place] # (Auto) 0.6 (0.0-0.8) K/mm3 Eos # (Auto) 0.3 (0.0-0.4) K/mm3 Baso # (Auto) 0.0 (0.0-0.1) K/mm3 Seg Neutrophils % 53.0 (40.0-70.0) % Seg Neutrophils # 4.0 (1.8-7.7) K/mm3 Sodium 138 (137-145) mmol/L Potassium 4.2 (3.6-5.0) mmol/L Chloride 102.2 (98-107) mmol/L Carbon Dioxide 25 (22-30) mmol/L Anion Gap 15 mmol/L BUN 10 (9-20) mg/dL Creatinine 0.6 L (0.8-1.3) mg/dL Estimated GFR > 60 ml/min BUN/Creatinine Ratio 17 % Glucose 85 (75-100) mg/dL Calcium 8.9 (8.4-10.2) mg/dL Urine Color Straw (Yellow) Urine Turbidity Clear (Clear) Urine pH 6.0 (5.0-7.0) Ur Specific [place] 1.003 (1.003-1.030) Urine Protein <15 mg/dl (Negative) mg/dL Urine Glucose (UA) Neg (Negative) mg/dL Urine Ketones Neg (Negative) mg/dL Urine Blood Neg (Negative) Urine Nitrite Neg (Negative) Urine Bilirubin Neg (Negative) Urine Urobilinogen < 2.0 (<2.0) mg/dL Ur Leukocyte Esterase Neg (Negative) Urine WBC (Auto) < 1.0 (0.0-6.0) /HPF Urine RBC (Auto) < 1.0 (0.0-6.0) /HPF U Epithel Cells (Auto) < 1.0 (0-13.0) /HPF Urine Bacteria (Auto) 1+ (Negative) /HPF - Medical Decision Making 61-year-old male presents to the hospital complaining of urinary contentious secondary to bladder stimulator failure. Patient was having significant discomfort and difficulty with self cathing and requested Ayala catheter placement. Ayala catheter was placed with the aid of pain medication/Dilaudid and Versed. Patient was monitored as per conscious sedation protocol. Patient's labs and urine results were unremarkable. Patient was discharged home with Ayala leg bag and to follow-up as scheduled on Saturday for his planned urology procedure. Case discussed with Dr. Stack during ED stay and he was provided a courtesy update of patient's plan for discharge and outpatient follow-up Critical Care Time: No Critical care attestation.: If time is entered above; I have spent that time in minutes in the direct care of this critically ill patient, excluding procedure time. ED Disposition Clinical Impression: Urine retention, Neurogenic bladder, Ayala catheter in place on admission Disposition: TO HOME OR SELFCARE Is pt being admited?: No Condition: Stable Instructions: Neurogenic Bladder, Indwelling Urinary Catheter Care, Adult Additional Instructions: Follow-up with your urologist as scheduled on Saturday. Continue your current medications. Return if symptoms worsen as indicated by your discharge instructions. Referrals: FIONA WILSON MD [Staff Physician] - 01/30/21 Time of Disposition: 18:26
[2021-01-28 16:14] LABS: Basophils % (Auto) 0.4 % (0.0-1.8); Eosinophils # (Auto) 0.3 K/mm3 (0.0-0.4); Eosinophils % (Auto) 3.4 % (0.0-4.3); Hemoglobin 14.8 gm/dl (11.8-15.2); Lymphocytes # (Auto) 2.7 K/mm3 (1.2-5.4); Lymphocytes % (Auto) 35.6 % (13.4-35.0); Mean Corpuscular HGB Conc 34 % (32-34); Mean Corpuscular Volume 100 fl (84-94); Monocytes # (Auto) 0.6 K/mm3 (0.0-0.8); Monocytes % (Auto) 7.6 % (0.0-7.3); Platelet Count 172 K/mm3 (140-440); Red Cell Distribution Width 13.2 % (13.2-15.2)
[2021-01-28] MEDS ORDERED: MIDAZOLAM 2 MG/2 ML INJ IV ONE (16:15)
[2021-01-28 16:35] LABS: BUN/Creatinine Ratio 17; Blood Urea Nitrogen 10 mg/dL (9-20); Calcium 8.9 mg/dL (8.4-10.2); Hemolysis Index 11
[2021-01-28 16:53] LABS: Bacteria,Urine 1+ /HPF (Negative); Bilirubin,Urine NEG (Negative); Blood,Urine NEG (Negative); Color,Urine Straw (Yellow); Protein,Urine <15 mg/dL mg/dL (Negative); RBC,Urine < 1.0 /HPF (0.0-6.0); Urobilinogen,Urine < 2.0 mg/dL (<2.0); WBC,Urine < 1.0 /HPF (0.0-6.0)
[2021-01-28 17:02] VITALS: BP 139/64
== END 2021-01-28 18:45 | disposition home or self-care (01) ==
LOC: ED 13:48
DX: N31.9 Neuromuscular dysfunction of bladder, unspecified (principal); R33.9 Retention of urine, unspecified; I10 Essential (primary) hypertension; M19.91 Primary osteoarthritis, unspecified site; J44.9 Chronic obstructive pulmonary disease, unspecified; Z79.899 Other long term (current) drug therapy
CPT/HCPCS: 36415; 51702; 80048; 81001; 85025; 96374; 96375; 99284; J1170; J2250; J2405; 94760

== ENCOUNTER 2021-01-30 08:27 | Day surgery (SDC) | payer MEDICARE ==
[~2021-01-30 08:27] MED LIST changes: -MIDAZOLAM 2 MG/2 ML INJ IV NR; -ceFAZolin/Water 2 GM/20 ML 2 GM/20 ML SYRINGE IV NR
[2021-01-30] MEDS ORDERED: ceFAZolin/STERILE WATER 2 GM/20 ML SYRINGE IV NR (09:00)
[2021-01-30] MEDS ORDERED: IPRATROPIUM/ALBUTEROL SULFATE 3 ML AMPUL.NEB IH NR (10:00)
[2021-01-30] MEDS ORDERED: carvediloL 6.25 MG TAB PO NR (10:01)
[2021-01-30] MEDS ORDERED: ONDANSETRON 4 MG/2 ML INJ IV PRN (10:16)
--- NOTE | 2021-01-30 10:19 | Anesthesia Consultation ---
Anesthesia Consult and Med Hx Date of service: 01/30/21 - Airway Anesthetic Teeth Evaluation: Partials ROM Head & Neck: Adequate Mental/Hyoid Distance: Adequate Mallampati Class: Class II Intubation Access Assessment: Probably Good - Pulmonary Exam CTA: No (mild diffuse wheezing) - Cardiac Exam Cardiac Exam: RRR - Pre-Operative Health Status ASA Pre-Surgery Classification: ASA3 Proposed Anesthetic Plan: MAC - Pulmonary Hx Smoking: Yes (1PPD) Hx Respiratory Symptoms: No COPD: Yes (will give duoneb in preop) Home Oxygen Therapy: No - Cardiovascular System Hx Hypertension: Yes (will give home dose carvedilol in preop) Hx Peripheral Vascular Disease: No - Central Nervous System Hx Neuromuscular Disorder: No (neurogenic bladder) CVA: No Hx Psychiatric Problems: Yes (bipolar disorder) - Gastrointestinal Hx Gastroesophageal Reflux Disease: Yes - Endocrine Hx Renal Disease: No Hx Liver Disease: No Hx Insulin Dependent Diabetes: No Hx Non-Insulin Dependent Diabetes: No Hx Thyroid Disease: No - Additional Comments Anesthesia Medical History Comments: No hx anesthetic complications.
--- NOTE | 2021-01-30 10:19 | Anesthesia Day of Surgery ---
Anesthesia Day of Surgery - Day of Surgery Patient Examined: Yes Patient H&P Reviewed: Yes Patient is NPO: Yes Beta Blockers: Yes
[2021-01-30] MEDS ORDERED: fentaNYL 100 MCG/2 ML INJ ONE (10:25)
[2021-01-30] MEDS: fentaNYL 100 MCG/2 ML INJ IV PRN ×2 (10:30→10:56)
[2021-01-30] MEDS: MIDAZOLAM 2 MG/2 ML INJ IV NR ×2 (10:31→11:32)
[2021-01-30] MEDS ORDERED: MIDAZOLAM 2 MG/2 ML INJ IV NR (11:40)
[2021-01-30] MEDS ORDERED: propofoL 200 MG/20 ML VIAL IV ONE (12:09)
[2021-01-30] MEDS ORDERED: HYDROmorphone 1 MG/1 ML INJ ONE (12:09)
[2021-01-30] MEDS ORDERED: LIDOCAINE MPF (2%) 20 MG/1 ML VIAL 5 ML ONE (12:09)
[2021-01-30] MEDS ORDERED: KETAMINE/STERILE WATER 50 MG/ML SYRINGE ONE (12:09)
[2021-01-30] MEDS ORDERED: dexAMETHasone 20 MG/5 ML VIAL ONE (12:11)
[2021-01-30] MEDS ORDERED: PHENYLEPHRINE/NS 1,000 MCG/10 ML SYRINGE (OR USE) IV ONE (12:11)
[2021-01-30] MEDS ORDERED: ONDANSETRON 4 MG/2 ML INJ ONE (12:11)
[2021-01-30] MEDS ORDERED: WATER FOR IRRIG STERILE 2000 ML IR ONE (12:15)
[2021-01-30] MEDS ORDERED: MIDAZOLAM 2 MG/2 ML INJ ONE (12:27)
--- NOTE | 2021-01-30 12:55 | Short Stay Summary ---
Short Stay Documentation Date of service: 01/30/21 - History H&P: obtained from office - Allergies and Medications Current Medications: Allergies No Known Allergies Allergy (Verified 06/06/17 07:27) Home Medications Medication Instructions Recorded Confirmed Last Taken Type carvediloL [Coreg] 6.25 mg PO BID 06/06/17 01/30/21 01/29/21 20:00 History oxyCODONE /ACETAMINOPHEN [Percocet 5 mg PO PRN PRN 06/06/17 01/27/21 01/29/21 History 5/325] ALBUTEROL Inhaler(NF) 1 puff INHALATION PRN PRN 02/04/19 01/30/21 01/30/21 08:30 History Anoro Ellipta 62.5-25 Mcg INH 62.5 mcg INHALATION PRN 06/03/20 01/27/21 01/29/21 History Aspirin 81 mg [place] DAILY 06/03/20 01/30/21 01/22/21 History OXcarbazepine 600 mg PO BID 06/03/20 01/27/21 01/29/21 History Telmisartan [Micardis] 80 mg PO DAILY 06/06/20 01/27/21 01/29/21 History Active Medications Cefazolin Sodium (Cefazolin/Sterile Water 2 Gm/20 Ml Syringe) 2 gm IV PREOP NR Stop: 01/30/21 23:00 Hydromorphone HCl (Hydromorphone 1 Mg/1 Ml Inj) 0.5 mg IV Q10MIN PRN PRN Reason: Pain , Severe (7-10) Stop: 01/30/21 23:00 Lactated Ringer's (Lactated Ringers) 1,000 mls @ 100 mls/hr IV DIRECT RYLEE Stop: 01/30/21 23:59 Last Admin: 01/30/21 09:25 Dose: 100 mls/hr Documented by: Midazolam HCl (Midazolam 2 Mg/2 Ml Inj) 2 mg IV PREOP NR Stop: 01/30/21 23:59 Last Admin: 01/30/21 11:32 Dose: 2 mg Documented by: Midazolam HCl (Midazolam 2 Mg/2 Ml Inj) 2 mg IV PREOP NR Stop: 01/30/21 23:59 Ondansetron HCl (Ondansetron 4 Mg/2 Ml Inj) 4 mg IV ONCE PRN PRN Reason: Nausea And Vomiting Stop: 01/30/21 14:00 - Brief post op/procedure progress note Date of procedure: 01/30/21 Pre-op diagnosis: neurgenic bladder, BPH Post-op diagnosis: same Procedure: CYSTO, RPG, SPT (18F) Anesthesia: GETA Surgeon: FIONA LARSEN Pathology: none Condition: stable - Hospital course Hospital course: macrobid & norco (also erx done) - Disposition Condition at discharge: Stable Disposition: DC-01 TO HOME OR SELFCARE Short Stay Discharge Plan Follow up with: PRIMARY CARE, [Primary Care Provider] - 7 Days
[2021-01-30] MEDS: HYDROmorphone 1 MG/1 ML INJ IV PRN ×3 (13:00→13:25)
--- NOTE | 2021-01-30 13:28 | Operative Report ---
PREOPERATIVE DIAGNOSES: Neurogenic bladder, benign prostatic hypertrophy. POSTOPERATIVE DIAGNOSES: Neurogenic bladder, benign prostatic hypertrophy. PROCEDURE: Cystoscopy, bilateral retrograde pyelograms, suprapubic catheter placement (18-Ugandan). SURGEON: Stefan Wilson M.D. ANESTHESIA: General. ESTIMATED BLOOD LOSS: Minimal. FLUIDS: Crystalloid. COMPLICATIONS: No complications. INDICATIONS: This patient is a 61-year-old gentleman known to our service with neurogenic bladder, had previous InterStim, developed pain with InterStim, presents now for suprapubic catheter placement. Risks, benefits, and complications were explained. The patient developed pain with self-catheterization or indwelling Ayala. DESCRIPTION OF PROCEDURE: The patient was taken to the operative suite, placed in a supine position. After adequate general anesthesia, placed in a dorsal lithotomy position, prepped and draped in a sterile fashion. Pancystourethroscopy was performed with a 22-Ugandan Storz cystoscope. No acute bladder pathology. His urethra normal, prostate, he has a high bladder neck, minimal lateral lobe. Bilateral retrograde pyelograms were obtained with an 8-Ugandan [place] catheter and 8 mL of contrast. No filling defects or obstruction. InterStim could be seen on the shank tapper film as well as left hip replacement. Next, using a curved [place], 1 cm cephalad the pubic symphysis was palpated. [place] was inserted, could palpate the [place] on the suprapubic area. Small incision was made with the Bovie. The [place] was brought into the abdominal wall. An 18-Ugandan Ayala catheter was tied with ____ silk, pulled out to the urethra. Needle was cut. It was then advanced back into the bladder under direct vision. Balloon was inflated in the bladder, 10 mL, 2-0 Vicryl was used to attach the catheter to the skin. The patient tolerated the procedure well. Rectal exam was benign. He was extubated and taken to the recovery room in stable condition. He will go home on [employer] and [employer]. JOB# [id number] [facility]
[2021-01-30] MEDS ORDERED: oxyCODONE 5 MG TAB PO NR (13:37)
[2021-01-30 14:43] VITALS: BP 155/70
--- NOTE | 2021-01-30 15:18 | Fluoroscopy Report ---
FL retrograde urography INDICATION / CLINICAL INFORMATION: NEUROGENIC BLADDER. COMPARISON: None available. FINDINGS: Suprapubic catheter placement. Bilateral retrograde examinations performed. Catheter placement. Fluoroscopy time: 4 seconds. Fluoroscopic images: 4. Signer Name: Alexx Carballo MD Signed: 01/30/2021 3:13 PM Workstation Name: [id number]
== END 2021-01-30 14:25 | disposition home or self-care (01) ==
LOC: OR 08:27
PROVIDERS: ATTEND Urology
DX: N40.0 Benign prostatic hyperplasia without lower urinary tract symptoms (principal); N31.8 Other neuromuscular dysfunction of bladder; I25.10 Atherosclerotic heart disease of native coronary artery without angina pectoris; E78.00 Pure hypercholesterolemia, unspecified; I10 Essential (primary) hypertension; J44.9 Chronic obstructive pulmonary disease, unspecified; K21.9 Gastro-esophageal reflux disease without esophagitis; F31.9 Bipolar disorder, unspecified; F41.9 Anxiety disorder, unspecified; Z72.89 Other problems related to lifestyle; Z79.899 Other long term (current) drug therapy; Z79.82 Long term (current) use of aspirin; Z96.642 Presence of left artificial hip joint; Z98.890 Other specified postprocedural states
CPT/HCPCS: 36415; 51102; 74420; 84153; A4217; J0690; J1100; J1170; J2250; J2370; J2405; J2704; J3010; J3490; J7120; Q9967